=== PATIENT | female | born 2000 | race Caucasian/White ===

== ENCOUNTER 2022-02-27 10:52 | Emergency (ER) | payer BC, MEDICAID, SELFPAY ==
[2022-02-27 11:00] VITALS: BP 119/72; PULSE 84; RESP 16; TEMP 36.8; O2SAT 100
--- NOTE | 2022-02-27 11:14 | ED.URI ---
HPI - URI/Sore Throat General Chief Complaint: Upper Respiratory Infection Stated Complaint: SORE THROAT/SINUS CONGESTION/EARACHE/SWOLLEN GLAND Time Seen by Provider: 02/27/22 11:14 Source: patient, RN notes reviewed and old records reviewed Mode of arrival: ambulatory Limitations: no limitations History of Present Illness HPI Narrative: 21 year old female who presents to [facility] care with complaints of one week duration of sore throat, sinus congestion, cough, swollen glands in neck and earaches. Patient states that she did have a fever Wednesday and Wednesday last week and had to miss her school clinicals and also missed classes one day this week. Patient states that she has had known exposure to strep throat over a week ago. Patient reports that she has felt like her throat was swollen and did have some difficulty with eating and drinking for a few days, presenting throat not as sore and is eating and drinking well She reports that she started with sinus congestion and drainage and earache this morning, has had dry cough for a few days. Patient has history of exercise induced asthma denies any dyspnea or feeling of chest tightness of wheezing. MD elicited complaint: cough, sore throat, rhinorrhea, nasal congestion and other (earache) Pertinent past history: asthma (exercise induced) Onset (ago): week(s) (1) Consistency: constant Severity: moderate Description of mucous: clear Able to tolerate fluids by mouth: Yes Associated symptoms: fever, rhinorrhea, nasal congestion, sore throat, cough and other (earaches) Treatments prior to arrival: ibuprofen, cold medicine and other (mucinex) Related Data Home Medications Medication Instructions Recorded Confirmed albuterol sulfate 2 puff INHALATION QID PRN 02/27/22 02/27/22 norgestimate-ethinyl estradiol 1 tablet DIRECTED 02/27/22 02/27/22 [Sprintec (28)] Allergies Allergy/AdvReac Type Severity Reaction Status Date / Time Sulfa (Sulfonamide Allergy Rash Verified 02/27/22 11:24 Antibiotics) Review of Systems Review of Systems: CONSTITUTIONAL: fevers at start of symptoms, chills, or sweats. EYES: Denies visual changes, redness, or discharge. ENT: Positive for rhinorrhea, congestion, sore throat, or otalgia. CARDIOVASCULAR: Denies chest pain, palpitations, or edema. RESPIRATORY: Positive for dry cough denies dyspnea. GASTROINTESTINAL: Denies abdominal pain, nausea, vomiting, or diarrhea. GENITOURINARY: Denies dysuria or hematuria. SKIN: Denies rash or itching. MUSCULOSKELETAL: Denies back pain, joint pain, or myalgia. NEUROLOGIC: Denies headache, numbness, or weakness. PSYCHIATRIC: Denies anxiety or depression. All systems reviewed & are unremarkable except as noted in HPI and below PMFSH Past Medical History Medical History (Updated 02/27/22 @ 11:45 by Yulia Florence NP) Exercise-induced asthma Surgical History Surgical History (Updated 02/27/22 @ 11:47 by Yulia Florence NP) H/O excision of dermoid cyst ear History of repair of anterior cruciate ligament of right knee Hx of melanoma excision left posterior shoulder area Family History Family History (Updated 02/27/22 @ 11:48 by Yulia Florence NP) Mother Hypertension Grandparent Breast cancer Cancer of kidney Diabetes mellitus Kidney stones Father Kidney stones Social History Social History (Updated 02/27/22 @ 11:49 by Yulia Florence NP) Smoking status: Never smoker Alcohol intake: current Alcohol use details: rare social Substance use: never Occupation/Education: student Gender identity (if verbalized by the patient): Female Comments At time of signature, agree with nursing past medical, surgical, social and family history. There is no relevant family history pertinent to the presenting complaint Exam Narrative: GENERAL: Well-appearing, well-nourished, and in no acute distress. HEAD: Normocephalic, atraumatic. EYES: PERRLA and EOMI. ENT: Nares red with s
== END 2022-02-27 11:43 | disposition home or self-care (01) ==
PROVIDERS: Emergency Provider Registered Nurse
DX: J06.9 Acute upper respiratory infection, unspecified (principal); J02.9 Acute pharyngitis, unspecified; R05.9 Cough, unspecified; J45.990 Exercise induced bronchospasm
CPT/HCPCS: 87081; 87880; 99213; G0463

== ENCOUNTER 2023-01-08 17:41 | Emergency (ER) | payer BC, MEDICAID, SELFPAY ==
[2023-01-08 18:11] VITALS: BP 126/72; PULSE 81; RESP 18; TEMP 36.8; O2SAT 100
--- NOTE | 2023-01-08 18:26 | ED.URI ---
HPI - URI/Sore Throat General Chief Complaint: Upper Respiratory Infection Stated Complaint: sore throat; right ear pain Time Seen by Provider: 01/08/23 18:26 Source: patient, RN notes reviewed and old records reviewed Mode of arrival: ambulatory Limitations: no limitations History of Present Illness HPI Narrative: 22-year-old female presents to the [facility] with complaints of a sore throat and right ear pain since about Wednesday. Has not taken anything for symptoms denies ear pain currently. Concern for strep throat Related Data Home Medications Medication Instructions Recorded Confirmed albuterol sulfate 90 mcg/actuation 2 puff inhalation QID PRN 02/27/22 01/08/23 aerosol inhaler Shortness Of Breath Allergies Allergy/AdvReac Type Severity Reaction Status Date / Time Sulfa (Sulfonamide Allergy Rash Verified 01/08/23 18:30 Antibiotics) Review of Systems Review of Systems: All systems reviewed & are unremarkable except as noted in HPI and below Constitutional: Constitutional: Reports no additional constitutional complaints Eyes: Eyes: Reports no additional eye complaints ENT: Reports as per HPI and Reports sore throat Cardiovascular: Cardiovascular: Reports no additional cardiovascular complaints, Denies chest pain and Denies dyspnea Respiratory: Respiratory: Reports no additional respiratory complaints, Denies chest congestion, Denies cough and Denies dyspnea Gastrointestinal: Gastrointestinal: Reports no additional gastrointestinal complaints, Denies abdominal pain, Denies nausea and Denies vomiting Musculoskeletal: Musculoskeletal: Reports no additional musculoskeletal complaints Integumentary/Breasts: Skin/Breast: Reports system reviewed and no additional complaints, except as docu Neurologic: Reports system reviewed and no additional complaints, except as documented Psychiatric: Psychiatric: Reports no additional psychiatric complaints Allergic/Immunologic: Allergic/Immunologic: Reports no additional allergic/immunologic complaints [facility] Past Medical History Medical History (Updated 01/08/23 @ 20:39 by Yumi Gutierrez APRN) Exercise-induced asthma Surgical History Surgical History H/O excision of dermoid cyst ear History of repair of anterior cruciate ligament of right knee Hx of melanoma excision left posterior shoulder area Family History Family History Mother Hypertension Grandparent Breast cancer Cancer of kidney Diabetes mellitus Kidney stones Father Kidney stones Social History Social History Smoking status: Never smoker Alcohol intake: current Alcohol use details: rare social Substance use: never Occupation/Education: student Gender identity (if verbalized by the patient): Female Comments At the time of my signature, I reviewed and agree with the nursing past medical, surgical, social, and family history. There is no relevant family history pertinent to the patient complaint. Exam Const: General: cooperative, healthy appearing, comfortable, no acute distress, well developed, alert and well nourished Nutritional Appearance: well nourished Orientation/consciousness: patient oriented x3 Limitations: no limitations HENMT: Head: normal to inspection Ears: hearing grossly normal bilaterally and external ears normal Face/Nose/Sinus: Normal external nose present, Normal nares present, Normal nasal mucous membranes and turbinates present and normal facial exam Face and sinus: normal facial exam Mouth: Yes Normal oral and palatal mucosa present, Yes lip normal and Yes moist mucous membranes Throat: posterior oropharynx normal and uvula midline Eyes: General: appearance normal, both eyes and all related structures Alignment and Position: alignment normal Periorbital: periorbital findings
== END 2023-01-08 18:47 | disposition home or self-care (01) ==
PROVIDERS: Emergency Provider Nurse Practitioner
DX: J02.9 Acute pharyngitis, unspecified (principal); J45.990 Exercise induced bronchospasm
CPT/HCPCS: 87081; 87880; 99213; G0463

== ENCOUNTER 2023-07-27 09:49 | Emergency (ER) | payer BC, MEDICAID, SELFPAY ==
[2023-07-27 10:06] VITALS: BP 112/74; PULSE 103; RESP 16; TEMP 37; O2SAT 99
--- NOTE | 2023-07-27 10:08 | ED.URI ---
HPI - URI/Sore Throat General Chief Complaint: Upper Respiratory Infection Stated Complaint: Sore Throat,Congestion,Headache,Lt Ear Irritation Time Seen by Provider: 07/27/23 10:09 Source: patient Mode of arrival: ambulatory Limitations: no limitations History of Present Illness HPI Narrative: Ashly is a 22-year-old female patient presenting to the clinic today with complaints of sore throat, nasal congestion, headache, left ear pain times 2-3 days. She reports symptoms started Wednesday night/early Wednesday morning. She works as a nurse. She denies any chest pain or shortness of breath. MD elicited complaint: sore throat, nasal congestion and other (Headache, ear pain) Related Data Home Medications Medication Instructions Recorded Confirmed albuterol sulfate 90 mcg/actuation 2 puff inhalation QID PRN 02/27/22 07/27/23 aerosol inhaler Shortness Of Breath Or Wheezing Allergies Allergy/AdvReac Type Severity Reaction Status Date / Time Sulfa (Sulfonamide AdvReac Mild Rash Verified 07/27/23 10:03 Antibiotics) Review of Systems Review of Systems: Pertinent positives per HPI. Patient denies any fever, chills, rash, visual changes, dizziness, shortness of breath, chest pain, palpitations, nausea, vomiting, diarrhea, constipation, abdominal pain, or any urinary issues. [facility] Past Medical History Medical History Exercise-induced asthma Surgical History Surgical History H/O excision of dermoid cyst ear History of repair of anterior cruciate ligament of right knee Hx of melanoma excision left posterior shoulder area Family History Family History Mother Hypertension Grandparent Breast cancer Cancer of kidney Diabetes mellitus Kidney stones Father Kidney stones Social History Social History Smoking status: Never smoker Alcohol intake: current Alcohol use details: rare social Substance use: never Occupation/Education: student Gender identity (if verbalized by the patient): Female Comments At the time of my signature, I reviewed and agree with the nursing past medical, surgical, social, and family history. There is no relevant family history pertinent to the patient complaint. Exam Narrative: General: Well-developed, well nourished, in no apparent distress Head: Normocephalic, atraumatic Eyes: Pupils equally round and reactive to light bilaterally, EOM intact, sclera and conjunctive clear, no discharge, lids normal Ears: TMs intact and clear, ear canals clear, no drainage, grossly hearing normal. Nose: Nares patent, clear discharge, no inflammation, no sinus tenderness. Mouth: Oral pharynx mildly red without lesions or masses, good dentition, MMM. Neck: Supple, trachea midline, no enlargement of anterior or posterior cervical nodes, no thyroid masses or goiter palpable. Cardio: Regular rate and rhythm, s1 and s2 normal, no murmur appreciated. Resp: Clear to auscultation bilaterally, no rhonchi, rales, wheezing or rubs Course Course Emergency Course: Portions of this record may have been created with voice recognition software. Level of Care: Express Care Visit Vital Signs Vital signs: Vital Signs Temperature 37.0 C 07/27/23 10:06 Pulse Rate 103 H 07/27/23 10:06 Respiratory Rate 16 07/27/23 10:06 Blood Pressure 112/74 07/27/23 10:06 Pulse Oximetry 99 07/27/23 10:06 Oxygen Delivery Room Air 07/27/23 10:06 Temperature 37.0 C 07/27/23 10:06 Pulse Rate 103 H 07/27/23 10:06 Respiratory Rate 16 07/27/23 10:06 Blood Pressure 112/74 07/27/23 10:06 Pulse Oximetry 99 07/27/23 10:06 Oxygen Delivery Room Air 07/27/23 10:06 Vital signs reviewed MDM - URI/Sore Throat MDM Narrative Medical dec
== END 2023-07-27 10:28 | disposition home or self-care (01) ==
PROVIDERS: Emergency Provider Nurse Practitioner Family
DX: U07.1 COVID-19 (principal); J45.990 Exercise induced bronchospasm
CPT/HCPCS: 87426; 99213; C9803; G0463